=== PATIENT | female | born 1970 | race Caucasian/White ===

== ENCOUNTER 2023-10-03 06:13 | Observation (INO) ==
--- NOTE | 2023-09-13 11:24 | PAT Medication Instructions ---
Medication Instructions Date of Service September 13, 2023 Home Medications albuterol sulfate 90 mcg/actuation aerosol inhaler (Ventolin HFA) 2 puff inhalation Q6H PRN ascorbic acid (vitamin C) 1,000 mg capsule 1 g PO QAM atorvastatin 20 mg tablet 20 mg PO QPM buspirone 5 mg tablet 5 mg PO BID cholecalciferol (vitamin D3) 125 mcg (5,000 unit) capsule 125 mcg PO QAM cranberry-B.nhlhrapps-V-Th phos 480 mg-20 mg-100 million cell tablet (Cranberry- Probiotic) 1 tab PO QAM denosumab 60 mg/mL subcutaneous syringe (Prolia) 60 mg subcut Q6M diclofenac sodium 1 % topical gel (Arthritis Pain (diclofenac)) 2 g topical QID duloxetine 60 mg capsule,delayed release (Cymbalta) 60 mg PO BID fexofenadine 180 mg tablet 180 mg PO HS hydrochlorothiazide 12.5 mg tablet 12.5 mg PO QAM PRN lansoprazole 15 mg capsule,delayed release (Prevacid 24Hr) 15 mg PO QPM linaclotide 290 mcg capsule (Linzess) 290 mcg PO QAM semaglutide 2 mg/dose (8 mg/3 mL) subcutaneous pen injector (Ozempic) 2 mg subcut WK STOP 7 days before surgery semaglutide 2 mg/dose (8 mg/3 mL) subcutaneous pen injector (Ozempic) 2 mg subcut WK ASK your prescriber and surgeon denosumab 60 mg/mL subcutaneous syringe (Prolia) 60 mg subcut Q6M STOP taking 24 hours before surgery diclofenac sodium 1 % topical gel (Arthritis Pain (diclofenac)) 2 g topical QID DO NOT take the morning of surgery ascorbic acid (vitamin C) 1,000 mg capsule 1 g PO QAM cholecalciferol (vitamin D3) 125 mcg (5,000 unit) capsule 125 mcg PO QAM cranberry-B.dimyszoox-N-Xc phos 480 mg-20 mg-100 million cell tablet (Cranberry- Probiotic) 1 tab PO QAM hydrochlorothiazide 12.5 mg tablet 12.5 mg PO QAM PRN linaclotide 290 mcg capsule (Linzess) 290 mcg PO QAM Take morning of surgery With a small sip of water, OTHERWISE NOTHING TO EAT OR DRINK AFTER MIDNIGHT: albuterol sulfate 90 mcg/actuation aerosol inhaler (Ventolin HFA) 2 puff inhalation Q6H PRN(use if needed; please bring with you to hospital day of surgery if possible) buspirone 5 mg tablet 5 mg PO BID duloxetine 60 mg capsule,delayed release (Cymbalta) 60 mg PO BID Take evening before surgery albuterol sulfate 90 mcg/actuation aerosol inhaler (Ventolin HFA) 2 puff inhalation Q6H PRN(if needed) atorvastatin 20 mg tablet 20 mg PO QPM buspirone 5 mg tablet 5 mg PO BID duloxetine 60 mg capsule,delayed release (Cymbalta) 60 mg PO BID fexofenadine 180 mg tablet 180 mg PO HS lansoprazole 15 mg capsule,delayed release (Prevacid 24Hr) 15 mg PO QPM Other Notes If you have any questions please call us at [phone] or [phone] or [phone] or [phone]
--- NOTE | 2023-09-22 13:54 | Anesthesiology Consultation ---
Date of Service September 22, 2023 Assessment & Plan (1) Encounter for pre-operative examination: Chart Review Chart Review: Acceptable Risk for Surgery (pending PCP clearance ) and Patient seen in Pre Admission Testing - Awaiting PCP clearance (09/23/23) (Adeline Henson with Dr. Tejeda office) (please send optimization form with preop testing to PCP re: recent syncope and current liver work up) - Check BSG AM DOS Patient wears Freestyle Michael glucose monitoring device to upper extremity - Ozempic instructions: Patient takes on (Mondays). Patient informed at PAT visit to stop 7 days prior to surgery- voiced understanding. Patient advised to check with prescriber while holding Ozempic. Patient's last dose of Ozempic will be 09/26/23- will be off Ozempic x 7 days by DOS on 10/03/23. Per PAT appt on 09/22/23, no recent illness/disease exposures, illness related symptoms, or recent illness/disease positive tests. Will leave to surgeon's discretion if preop Covid testing needed Teaching & Discussion Pre-Anesthesia Teaching/Discussion Notes: Instructed NPO after midnight before surgery,except medications with 15 cc of water. Medication instructions provided according to the PAT guidelines. History Surgery Operation Date: 10/03/23 13:25 Proposed Procedures p C5-C6 Anterior Cervical Discectomy and Fusion, Spinal Cord Monitoring - Carlitos Luong DO Height/Weight Height: 5 ft 1 in Weight: 63.9 kg Allergies Allergy/AdvReac Type Severity Reaction Status Date / Time codeine Allergy Severe itching. Verified 09/13/23 07:37 erythromycin base Allergy Intermediate rash/hives Verified 09/13/23 07:37 gabapentin Allergy Intermediate generalized Verified 09/13/23 07:37 edema adhesive AdvReac Intermediate localized Verified 09/13/23 07:38 red patches, itching Medications Home Medications Medication Instructions Recorded Confirmed Last Taken albuterol sulfate 90 mcg/actuation 2 puff inhalation Q6H PRN sob 06/23/23 09/13/23 Unknown aerosol inhaler (Ventolin HFA) ascorbic acid (vitamin C) 1,000 mg 1 g PO QAM 06/23/23 09/13/23 Unknown capsule atorvastatin 20 mg tablet 20 mg PO QPM 06/23/23 09/13/23 Unknown buspirone 5 mg tablet 5 mg PO BID 06/23/23 09/13/23 Unknown cholecalciferol (vitamin D3) 125 125 mcg PO QAM 06/23/23 09/13/23 Unknown mcg (5,000 unit) capsule cranberry-B.siahzrhmp-L-Pw phos 1 tab PO QAM 06/23/23 09/13/23 Unknown 480 mg-20 mg-100 million cell tablet (Cranberry-Probiotic) denosumab 60 mg/mL subcutaneous 60 mg subcut Q6M 06/23/23 09/13/23 Unknown syringe (Prolia) diclofenac sodium 1 % topical gel 2 g topical QID 06/23/23 09/13/23 Unknown (Arthritis Pain (diclofenac)) duloxetine 60 mg capsule,delayed 60 mg PO BID 06/23/23 09/13/23 Unknown release (Cymbalta) fexofenadine 180 mg tablet 180 mg PO HS 06/23/23 09/13/23 Unknown hydrochlorothiazide 12.5 mg tablet 12.5 mg PO QAM PRN Edema 06/23/23 09/13/23 Unknown lansoprazole 15 mg capsule,delayed 15 mg PO QPM 06/23/23 09/13/23 Unknown release (Prevacid 24Hr) linaclotide 290 mcg capsule 290 mcg PO QAM 09/13/23 09/13/23 Unknown (Linzess) semaglutide 2 mg/dose (8 mg/3 mL) 2 mg subcut WK 09/13/23 09/13/23 09/12/23 subcutaneous pen injector (Ozempic) Past Medical History Medical History Hard of hearing Wears hearing aids bilaterally Diabetes mellitus NIDDM Glucose stable - on Ozempic Hx of syncope July (mid-end) 2022 - treated at [facility]. pt reports her ears werer popping and became dizzy and she had passed out at home "for a minute or so" and found herself on the bathroom floor. did not hit her head - treated at [facility] Emergency Room. no recent episodes. PCP had patient do the holter monitor for 09/09 - 09/11/23, awaiting those results. History of COVID-2019 - moderate flu symptoms. no current problems Chronic back pain Degenerative disc disease Lyme disease No current issues Deep vein thrombosis 1988 s/p . treated with blood thinners at the time for 1 year. no current issues. Sleep apnea hx - resolved with gastric bypass and weightloss. no longer uses machine. Post traumatic stress disorder Hx of motion sickness Nausea and vomiting after administration of anesthetic agent uses scopalamine patch in the past with success Myalgia reason for duloxetine currently Osteoporosis Chronic sinusitis No acute issues Stress headaches Pneumonia "walking pneumonia" June 2023. treated with abx/steroids at the time. no current problems. Asthma well controlled. rarely uses rescue inhaler - last used June 2023 Insomnia GERD (gastroesophageal reflux disease) Well controlled and stable with meds Anxiety Depression Mesenteric lymphadenitis Last issue 2011 - no recent issues Elevated liver enzymes awaiting an MRCP for further evaluation with [facility] Castelan (10/12/23) (following with GI) Exercise / Class Metabolic Activity II 4-5 Yardwork/Stairs/Walk up hill (one flight of stairs - no chest pain or SOB ) Past Family History Family History Other No family history of adverse response to anesthesia Past Surgical History Surgical History Hx of myringotomy bilateral tubes (last placed in 2019) S/P epidural steroid injection lumbar History of colonoscopy History of esophagogastroduodenoscopy (EGD) History of Humaira-en-Y gastric bypass (~2010) 2010 at [facility] Hx of umbilical hernia repair History of endoscopic sinus surgery removal of benign polyps History of laryngoscopy to remove benign polyps from the vocal cords S/P CHARLIE-BSO History of carpal tunnel surgery bilateral Hx of cholecystectomy History of x2 Past Anesthesia History No Hx of Anesthesia Complications (with exception to PONV ) and No Family Hx of Anesthesia Complications History of PONV History of PONV (improved with scop patch (ordered for AM of surgery)) and Hx of Motion Sickness Social History Smoking Status: Never smoker Do You Dip or Chew Tobacco: No Hx Alcohol Use: No Hx Substance Use: No substance use type: does not use Review of Systems Patient denies chest pain, shortness of breath, dyspnea on exertion, cough, wheezing, palpitations. No hx of seizures, stroke, CT. No hx of blood transfusions Physical Exam Vital Signs VITALS BP 108/72 P 63 TEMP 98.6 SP02 96% RESP 16 Constitutional no acute distress ENMT Mouth: + small oral opening; no TMJ clicking Thyromental Distance: > or= 3.5 Finger Breadths (3.5) Mallampati Class: I Full upper denture Missing bottom molars and side teeth Neck + limited neck extension (mild) Respiratory normal respiratory effort; no respiratory distress Auscultation: lungs clear to auscultation bilaterally; breath sounds present and no wheezes Cardiovascular Rate/Rhythm: regular rate and regular rhythm Heart Sounds: no murmur Vessels: no carotid bruit Musculoskeletal Spine: + pain with cervical ROM Extremities: extremities normal to inspection Psychiatric Orientation: alert Lab Results Anesthesia Preop Results Results Anesthesia Widget: WBC 5.48 K/ul (4.8-10.8) 09/22/23 Hgb 14.2 g/dl (12.0-16.0) 09/22/23 Hct 44.5 % (37.0-47.0) 09/22/23 Plt 296 K/uL (130-400) 09/22/23 Na 140 mmol/L (136-145) 09/22/23 K 3.6 mmol/L (3.5-5.1) 09/22/23 Cl 104 mmol/L (98-107) 09/22/23 CO2 31 mmol/L (21-32) 09/22/23 BUN 14 mg/dl (6-23) 09/22/23 Creat 0.80 mg/dl (0.6-1.2) 09/22/23 Glucose Level 112 mg/dl (70-99(Fasting)) H 09/22/23 PT 10.8 Seconds (9.0-12.0) 09/22/23 PTT 28 Seconds (21-31) 09/22/23 INR 1.0 (0.9-1.1) 09/22/23 HA1c 6.0 % (4.5-5.6) H 09/22/23 Urine Color Dark Yellow 09/22/23 Urine Appearance Turbid (Clear) A 09/22/23 Urine pH 5.5 (4.5-7.5) 09/22/23 Urine Specific [place] 1.027 (1.000-1.030) 09/22/23 Urine Protein Negative (Negative) 09/22/23 Urine Glucose (UA) Negative (Negative) 09/22/23 Urine Ketones Trace (Negative) H 09/22/23 Urine Blood Negative (Negative) 09/22/23 Urine Nitrite Negative (Negative) 09/22/23 Urine Bilirubin Negative (Negative) 09/22/23 Urine Urobilinogen Negative (Negative) 09/22/23 Urine Leukocyte Esterase Trace (Negative) H 09/22/23 Urine WBC (Auto) 5-10 /hpf (0-5) H 09/22/23 Urine RBC (Auto) 0-4 /hpf (0-4) 09/22/23 Urine Hyaline Casts (Auto) 10-30 /lpf (0-5) H 09/22/23 Urine Epithelial Cells (Auto) 10-20 /lpf (0-5) H 09/22/23 Urine Bacteria (Auto) Negative (Negative) 09/22/23 Blood Type A Positive 09/22/23 Antibody Screen NEGATIVE 09/22/23 Testing Laboratory Results 09/22/23= AST: 34 ALT: 56 ALK PHOS: 91 Electrocardiogram Date: 09/22/23 Findings: + NSR @ (61bpm ) Normal EKG per cardio Chest X-Ray Date: 08/15/23 Findings: + NAD Mild atherosclerotic changes of aorta. No focal consolidation, pleural effusion or pneumothorax. Other Testing CT of head/brain 08/15/2023 = no acute intracranial abnormality identified. Stable extra-axial likely calcified meningioma along the left frontal convexity, unchanged. Measures up to 5 mm. Postsurgical changes of partially visualized sinuses, with mucous retention cyst or polyp in the left sphenoid sinus.
[~2023-10-03 06:13] MED LIST: ACETAMINOPHEN 500 MG TAB PO SCH; CeleBREX 200 MG CAP PO SCH; LR 15ML/HR IV SCH; LR 60ML/HR IV SCH; ceFAZolin 2000MG 2,000 MG/15 ML SYR IV SCH
[2023-10-03] MEDS ORDERED: ceFAZolin 330 MG/ML 1 GM VIAL ONE (07:03)
[2023-10-03] MEDS ORDERED: NEOSTIGMINE METHYLSULFATE 1 MG/ML 10ML VIAL ONE (07:10)
[2023-10-03] MEDS ORDERED: SCOPOLAMINE 1 MG TDSY TD ONE (07:10)
[2023-10-03] MEDS ORDERED: ROCURONIUM BROMIDE 10 MG/ML 5 ML VIAL IV ONE (07:10)
[2023-10-03] MEDS ORDERED: DEXAMETHASONE SOD INJ 4 MG/ML VIAL ONE (07:10)
[2023-10-03] MEDS ORDERED: METOCLOPRAMIDE HCL INJ 5 MG/ML 2 ML VIAL ONE (07:10)
[2023-10-03] MEDS ORDERED: fentaNYL citrate PF 100 MCG/2 ML VIAL ONE ×2 (07:10→08:30)
[2023-10-03] MEDS ORDERED: LIDOCAINE 2% 2 ML VIAL/AMP(20MG/ML) INFIL ONE (07:10)
[2023-10-03] MEDS ORDERED: ONDANSETRON INJ 2 MG/ML 2 ML VIAL ONE (07:10)
[2023-10-03] MEDS ORDERED: MIDAZOLAM HCL 1 MG/ML 2ML VIAL ONE (07:10)
[2023-10-03] MEDS ORDERED: PROPOFOL IV EMULSION 10 MG/ML 20 ML VIAL IV ONE (07:10)
[2023-10-03] MEDS ORDERED: GLYCOPYRROLATE 0.2 MG/ML VIAL ONE (07:10)
[2023-10-03] MEDS ORDERED: ePHEDrine sulfate 50 MG/ML AMP IV PRN (07:13)
[2023-10-03] MEDS ORDERED: ATROPINE SULFATE 0.1 MG/ML 10ML SYR IV PRN (07:13)
[2023-10-03] MEDS ORDERED: ONDANSETRON INJ 2 MG/ML 2 ML VIAL IV PRN ×2 (07:13→10:36)
[2023-10-03] MEDS ORDERED: SCOPOLAMINE 1 MG TDSY TD SCH (07:15)
[2023-10-03] MEDS ORDERED: FAMOTIDINE/PF 20 MG/2 ML VIAL IV ONE (07:18)
--- NOTE | 2023-10-03 07:46 | History & Physical Bridge Note ---
Date of Service October 03, 2023 History & Physical Bridge Note I have examined the patient, reviewed the History & Physical and in the interval since the performance of the History & Physical I have noted the following changes of clinical significance: no changes noted
--- NOTE | 2023-10-03 07:48 | History & Physical Report ---
Date of Service October 03, 2023 Assessment & Plan (1) Cervical stenosis of spinal canal: Plan: Anterior cervical discectomy and fusion C5-C6 History of Present Illness Chief Complaint: Neck and arm pain Primary Care Provider: VALARIE Reyes This is a 52-year-old female who presents for chronic persistent neck and arm pain after failing course of nonoperative care is here for surgical invention. Allergies Allergy/AdvReac Type Severity Reaction Status Date / Time codeine Allergy Severe itching. Verified 10/03/23 06:37 erythromycin base Allergy Intermediate rash/hives Verified 10/03/23 06:37 gabapentin Allergy Intermediate generalized Verified 10/03/23 06:37 edema adhesive AdvReac Intermediate localized Verified 10/03/23 06:37 red patches, itching Home Medications Medication Instructions Recorded Confirmed Type albuterol sulfate 90 mcg/actuation 2 puff inhalation Q6H PRN sob 06/23/23 10/03/23 History aerosol inhaler (Ventolin HFA) ascorbic acid (vitamin C) 1,000 mg 1 g PO QAM 06/23/23 10/03/23 History capsule atorvastatin 20 mg tablet 20 mg PO QPM 06/23/23 10/03/23 History buspirone 5 mg tablet 5 mg PO BID 06/23/23 10/03/23 History cholecalciferol (vitamin D3) 125 125 mcg PO QAM 06/23/23 10/03/23 History mcg (5,000 unit) capsule cranberry-B.mbfahocka-G-Zo phos 1 tab PO QAM 06/23/23 10/03/23 History 480 mg-20 mg-100 million cell tablet (Cranberry-Probiotic) denosumab 60 mg/mL subcutaneous 60 mg subcut Q6M 06/23/23 10/03/23 History syringe (Prolia) diclofenac sodium 1 % topical gel 2 g topical QID 06/23/23 10/03/23 History (Arthritis Pain (diclofenac)) duloxetine 60 mg capsule,delayed 60 mg PO BID 06/23/23 10/03/23 History release (Cymbalta) fexofenadine 180 mg tablet 180 mg PO HS 06/23/23 10/03/23 History hydrochlorothiazide 12.5 mg tablet 12.5 mg PO QAM PRN Edema 06/23/23 10/03/23 History lansoprazole 15 mg capsule,delayed 15 mg PO QPM 06/23/23 10/03/23 History release (Prevacid 24Hr) linaclotide 290 mcg capsule 290 mcg PO QAM 09/13/23 10/03/23 History (Linzess) semaglutide 2 mg/dose (8 mg/3 mL) 2 mg subcut WK 09/13/23 10/03/23 History subcutaneous pen injector (Ozempic) Past Med/Surg History Medical History Hard of hearing Wears hearing aids bilaterally Diabetes mellitus NIDDM Glucose stable - on Ozempic Hx of syncope July (mid-end) 2022 - treated at [facility]. pt reports her ears werer popping and became dizzy and she had passed out at home "for a minute or so" and found herself on the bathroom floor. did not hit her head - treated at [facility] Emergency Room. no recent episodes. PCP had patient do the holter monitor for 09/09 - 09/11/23, awaiting those results. History of COVID-2019 - moderate flu symptoms. no current problems Chronic back pain Degenerative disc disease Lyme disease No current issues Deep vein thrombosis 1988 s/p . treated with blood thinners at the time for 1 year. no current issues. Sleep apnea hx - resolved with gastric bypass and weightloss. no longer uses machine. Post traumatic stress disorder Hx of motion sickness Nausea and vomiting after administration of anesthetic agent uses scopalamine patch in the past with success Myalgia reason for duloxetine currently Osteoporosis Chronic sinusitis No acute issues Stress headaches Pneumonia "walking pneumonia" June 2023. treated with abx/steroids at the time. no current problems. Asthma well controlled. rarely uses rescue inhaler - last used June 2023 Insomnia GERD (gastroesophageal reflux disease) Well controlled and stable with meds Anxiety Depression Mesenteric lymphadenitis Last issue 2011 - no recent issues Elevated liver enzymes awaiting an MRCP for further evaluation with [facility] Annelise (10/12/23) (following with GI) Surgical History Hx of myringotomy bilateral tubes (last placed in 2019) S/P epidural steroid injection lumbar History of colonoscopy History of esophagogastroduodenoscopy (EGD) History of Humaira-en-Y gastric bypass (~2010) 2010 at [facility] Hx of umbilical hernia repair History of endoscopic sinus surgery removal of benign polyps History of laryngoscopy to remove benign polyps from the vocal cords S/P CHARLIE-BSO History of carpal tunnel surgery bilateral Hx of cholecystectomy History of x2 Family History Other No family history of adverse response to anesthesia Social History Smoking Status: Never smoker Second Hand Exposure: No; Do You Dip or Chew Tobacco: No; Tobacco Cessation Education Requested by Patient: No Hx Alcohol Use: No Hx Substance Use: No Preferred Language: Omani Communication Ability: Effective Stripper Preliminary Required: No Beliefs That Will Affect Care: None Current Living Situation: Spouse Other Information That Helps Us Care for You: No Feels Safe at Home: Yes Safety Concerns: Feels Safe At This Time Assistive Devices: Denture - Upper, Denture - Lower and Hearing Aid - Bilateral Physical Exam Physical Exam: Patient is alert and oriented Heart regular rhythm Lungs clear Results & Data Results & Data Vital Signs (Past 12 Hours) Vital Signs Temp Pulse Resp BP Pulse Ox O2 Del Method 10/03/23 06:55 36.7 C 63 20 108/71 98 Room Air
[2023-10-03] MEDS ORDERED: PHENYLEPHRINE 100MCG/ML 10ML SYR IV ONE (08:47)
[2023-10-03] MEDS ORDERED: ePHEDrine sulfate 50 MG/5 ML SYR ONE (08:47)
[2023-10-03] MEDS ORDERED: FLOSEAL HEMOSTATIC MATRIX 10ML TOP ONE (08:55)
--- NOTE | 2023-10-03 09:02 | Operative Report ---
Post Operative Report Pre & Post Diagnosis Operation Date: 10/03/23 07:45 Pre-Op Diagnosis: Cervical spinal stenosis with myeloradiculopathy Post-Op Diagnosis: Same I identified the patient and participated in the time-out.: Yes Procedure Operation Date: 10/03/23 07:45 Actual Procedures #1 anterior cervical discectomy with bilateral foraminotomies C5-C6. #2 anterior cervical arthrodesis C5-C6. #3 placement spiral 7 mm cage with I factor C5-C6. #4 application of K2 M plate and screws across C5-C6. Surgeon Carlitos Luong, Skiving Machine Operator May Wild Estimated Blood Loss 10 Findings Consistent with Post-Op Diagnosis Specimens None Indications This is a 52-year-old female who presents above-mentioned diagnosis after failin g course of nonoperative care is here for surgical invention. Description of Procedure Patient was met with identified informed consent obtained. Patient was then taken to the operative suite underwent patient placed in spine position ingestible the Castro lozada. All bony prominences well-padded eyes inspected to ensure no external precipice spinal. This point the anterior cervical spine was prepped and draped in a sterile fashion. The assistance of fluoroscopy identified the C5-C6 disc base and a transverse incision was placed along the right anterior aspect of the cervical spine overlying this region. Blunt dissection with assistance of bipolar electrocautery was performed down to exposing the anterior cervical spine at C5-C6. Self-retaining tractors placed. Then performed a complete discectomy of C5-C6 out to the uncovertebral joints bilaterally. [place] distracting pins utilized to assist in visualization. Removed all posterior annular fibers longitudinal ligament bilateral foraminotomies were performed in a submillimeter Spira cage filled with I factor X position. Distracting apparatus was removed and a K2 M plate screws applied with the assistance of fluoroscopy. The incision was then copiously irrigated explored to ensure no damage to distract structures remaining bleeding. 10 round SHIV drain inserted. The incision was then closed with 2 Vicryl in the fascia and 4 Monocryl for fascial closure. Steri-Strips sterile dressing placed. Patient was then taken to PACU in stable condition. Please note spinal cord monitoring was utilized at the procedure no changes noted. Lastly May Wild was present at the entire surgery and while the patient positioning complex course of the surgery and final skin closure. I attest to the content of the Intraoperative Record and any orders documented therein. Any exceptions are noted below.
[2023-10-03] MEDS: fentaNYL citrate PF 100 MCG/2 ML VIAL IV PRN ×2 (10:05→10:10)
--- NOTE | 2023-10-03 10:17 | Anesthesiology Progress Note ---
Date of Service October 03, 2023 Anesthesia Post Procedure Vital Signs Vital Signs: Temp Pulse Pulse Resp BP Pulse Ox O2 Del Method 10/03/23 10:10 78 16 117/62 99 Nasal Cannula 10/03/23 10:00 80 20 121/64 100 Nasal Cannula 10/03/23 09:50 80 22 122/63 100 Nasal Cannula 10/03/23 09:40 82 16 117/60 100 Nasal Cannula 10/03/23 09:30 78 22 119/59 L 100 Nasal Cannula 10/03/23 09:20 97.5 F L 84 20 112/66 100 Room Air 10/03/23 06:55 98.1 F 63 20 108/71 98 Room Air O2 Flow Rate 10/03/23 10:10 2 10/03/23 10:00 2 10/03/23 09:50 2 10/03/23 09:40 2 10/03/23 09:30 2 10/03/23 09:20 10/03/23 06:55 Pain Intensity Anterior Neck: Pain Intensity: 4 Transfer of Care Handoff Completed per policy Notes Mental Status: alert / awake / arousable and participated in evaluation Patient Amnestic to Procedure: Yes Nausea / Vomiting: adequately controlled Pain: adequately controlled Airway Patency, RR, SpO2: stable & adequate BP & HR: stable & adequate Hydration State: stable & adequate Anesthetic Complications: no major complications apparent and Pt Satisfied with anesthetic care
[2023-10-03] MEDS ORDERED: ALUMINUM/MAGNESIUM SUSP 30 ML UDC PO PRN (10:36)
[2023-10-03] MEDS ORDERED: METOCLOPRAMIDE HCL INJ 5 MG/ML 2 ML VIAL IV PRN (10:36)
[2023-10-03] MEDS ORDERED: SOD PHOSPHATE/SOD BIPHOSPHATE ENEMA 132 ML BTL PR PRN (10:36)
[2023-10-03] MEDS ORDERED: diphenhydrAMINE Capsule 25 MG CAP PO PRN (10:36)
[2023-10-03] MEDS ORDERED: HYDROmorphone INJ 0.5 MG/0.5 ML SYR IV PRN (10:36)
[2023-10-03] MEDS ORDERED: dexAMETHasone 8 MG in SYRINGE 0 ML IV PRN (10:36)
[2023-10-03] MEDS ORDERED: bisacodyL 10 MG SUPP PR PRN (10:36)
[2023-10-03] MEDS ORDERED: NALOXONE HCL 0.4 MG/1 ML VIAL/CARP IV PRN (10:36)
[2023-10-03] MEDS ORDERED: ONDANSETRON 4 MG OD TAB PO PRN (10:36)
[2023-10-03] MEDS ORDERED: ALBUTEROL HFA 8 GM INHALER INH PRN (10:36)
[2023-10-03] MEDS ORDERED: hydrOXYzine HCl 25 MG TAB PO PRN (10:36)
[2023-10-03] MEDS ORDERED: LORazepam 0.5 MG in SYRINGE 0.25 ML IV PRN (10:36)
[2023-10-03] MEDS ORDERED: ACETAMINOPHEN 500 MG TAB PO PRN (10:36)
[2023-10-03] MEDS ORDERED: HYDROmorphone INJ 1 MG/ML SYRINGE IV PRN (10:36)
[2023-10-03] MEDS ORDERED: DO NOT ADMINISTER FLU VACCINE PRN (10:36)
[2023-10-03] MEDS ORDERED: DO NOT ADMINISTER PNEUMOCOCCAL VACCINE PRN (10:36)
[2023-10-03] MEDS ORDERED: PHARMACY GLYCEMIC MGMT CONSULT PRN (10:36)
[2023-10-03] MEDS ORDERED: FAMOTIDINE 20 MG TAB PO PRN (10:36)
[2023-10-03] MEDS ORDERED: PROMETHAZINE HCL 12.5 MG in SODIUM CHLORIDE 0.9% 50 ML IV PRN (10:36)
[2023-10-03] MEDS ORDERED: ACETAMINOPHEN 1,000 MG/100 ML VIAL IV PRN (10:36)
[2023-10-03] MEDS ORDERED: hydroCHLOROthiazide 25 MG TAB PO PRN (10:36)
[2023-10-03] MEDS ORDERED: RACEPINEPHRINE 2.25% NEBU SOLN 0.5 ML VIAL INH PRN (10:36)
[2023-10-03] MEDS ORDERED: MAGNESIUM HYDROXIDE SUSP 30 ML UDC PO PRN (10:36)
[2023-10-03] MEDS: CHECK SCOPOLAMINE PATCH PLACEMENT SCH ×3 (10:46→23:43)
--- NOTE | 2023-10-03 10:51 | Fluoroscopy Report ---
FL cervical 2-3V CLINICAL HISTORY: ACDF C5-C6 TECHNIQUE: 2 views were obtained with the C-arm in the OR with the above procedure. Total fluoroscopy time was 5.1 seconds. Radiation dose was 0.35 mGy. Comparison: None available at the time of this dictation. FINDINGS/IMPRESSION: Intraoperative images were obtained of ACDF spanning C5-C6. Please correlate with intraoperative fluoroscopy and operative report. ACT 112: Negative or not required by law. Electronically signed by: Larry Chappell M.D. 10/03/2023 10:49 AM
[2023-10-03] MEDS: SODIUM CHLORIDE 0.9% 1,000 ML IV SCH ×2 (11:14→19:58)
[2023-10-03] MEDS ORDERED: LANTUS PER UNIT CHARGE SC ONE ×2 (11:30→21:00)
[2023-10-03] MEDS: INSULIN ASPART PER UNIT CHARGE SC SCH ×3 (12:30→21:35)
[2023-10-03] MEDS: traMADol HCL 50 MG TABLET PO PRN ×2 (13:35→17:32)
--- NOTE | 2023-10-03 13:38 | Pharmacy Report ---
Pharmacy Glycemic Short Note 2 - Date of Service October 03, 2023 - Glycemic Short BSG Results (Last 24 hours): 10/03/23 10/03/23 10/03/23 06:46 09:21 11:26 POC Glucose 107 H 115 H 136 H OUTPATIENT ANTIDIABETIC REGIMEN: * Ozempic * A1c 6.0% 09/22/24 ASSESSMENT: * Patient is admitted post discectomy/fusion, received 4 mg IV dexamethasone in the OR. * A1c indicates good control outpatient, BSG is trending upward- 136 mg/dL- will start insulin with weight based stress of 2 dosing * Additional lantus dose this evening if BSGs elevated * Dex 6 mg daily scheduled to begin tomorrow PLAN FOR INPATIENT GLYCEMIC CONTROL: * Hold outpatient oral diabetes medications * Basal insulin * Lantus 10 units SQ x1, additional 10 units this evening if BSGs elevated * Bolus insulin * NovoLog per scale ACHS or Q6hrs while NPO * Goal Range: Low 110 mg/dL - High 140 mg/dL * Correction Factor: 35 mg/dL/unit * Nutritional / Prandial insulin per carb ratio of 1 unit per 12 grams CHO consumed
[2023-10-03] MEDS ORDERED: Nursing to Pharmacy Communication SCH (13:45)
[2023-10-03] MEDS: ceFAZolin 1000MG 1,000 MG/7.5 ML SYR IV SCH ×2 (15:45→23:27)
[2023-10-03] MEDS: DULoxetine HCL 60 MG CAP PO SCH (19:55)
[2023-10-03] MEDS: busPIRone 5 MG TAB PO SCH (19:55)
[2023-10-03] MEDS ORDERED: ATORVASTATIN 20 MG TAB PO SCH (21:00)
[2023-10-03] MEDS ORDERED: PANTOprazole 40 MG TAB PO SCH (21:00)
[2023-10-03] MEDS ORDERED: DOCUSATE SODIUM/SENNA 50/8.6MG TAB PO SCH (21:00)
[2023-10-03] MEDS ORDERED: FEXOFENADINE HCL 180 MG TAB PO SCH (21:00)
[2023-10-03] MEDS: oxyCODONE HCL IR 5 MG TAB (IMMEDIATE RELEASE) PO PRN (23:30)
[2023-10-04] MEDS: LORazepam 0.5 MG TAB PO PRN ×2 (02:42→14:10)
[2023-10-04] MEDS ORDERED: INSULIN ASPART PER UNIT CHARGE SC SCH (03:00)
[2023-10-04] MEDS: SODIUM CHLORIDE 0.9% 1,000 ML IV SCH (05:56)
[2023-10-04] MEDS: oxyCODONE HCL IR 5 MG TAB (IMMEDIATE RELEASE) PO PRN ×2 (06:00→11:52)
[2023-10-04] MEDS: POLYETHYLENE (MIRALAX) 17 GM PACK PO SCH ×2 (06:00→11:49)
[2023-10-04] MEDS: INSULIN ASPART PER UNIT CHARGE SC SCH ×2 (08:25→12:25)
[2023-10-04] MEDS: DULoxetine HCL 60 MG CAP PO SCH (08:26)
[2023-10-04] MEDS: CHECK SCOPOLAMINE PATCH PLACEMENT SCH (08:26)
[2023-10-04] MEDS: busPIRone 5 MG TAB PO SCH (08:26)
--- NOTE | 2023-10-04 08:39 | Discharge Summary ---
Date of Service October 04, 2023 Admission HPI Per Admitting Provider This is a 52-year-old female who presents for chronic persistent neck and arm pain after failing course of nonoperative care is here for surgical invention. Principal Diagnosis Cervical spinal stenosis with myeloradiculopathy Discharge Data Allergies Allergy/AdvReac Type Severity Reaction Status Date / Time codeine Allergy Severe itching. Verified 10/03/23 06:37 erythromycin base Allergy Intermediate rash/hives Verified 10/03/23 06:37 gabapentin Allergy Intermediate generalized Verified 10/03/23 06:37 edema adhesive AdvReac Intermediate localized Verified 10/03/23 06:37 red patches, itching Procedures Performed Operation Date: 10/03/23 07:45 Actual Procedures p C5-C6 Anterior Cervical Discectomy and Fusion, Spinal Cord Monitoring(Not Applicable) - Carlitos Luong DO Ordered Studies 10/03/23 07:45 FL cervical 2-3V Routine Hospital Course (1) Cervical stenosis of spinal canal: Patient underwent anterior cervical discectomy fusion tolerated this well was taken to orthopedic for postoperative. Postoperatively she swallowing well. No hoarseness. Arm symptoms markedly improved. SHIV drain decreasing appropriate. Simply discharged home. Discharge orders instructions on the chart for further review. Total Time Total Time Spent Total Time Spent (In Minutes): 20 minutes Discharge Plan Discharge Items Patient Disposition: Home - Self-Care Reason For Visit: Cervical Disc Disease, Myelomalacia Discharge Diagnosis: Cervical spinal stenosis with myeloradiculopathy Activity: As commented below Non-emergency contact: Primary Care Provider Call non-emergency contact if: you have any medication questions Follow-up/Referrals: Estefany Henson CRNP [Primary Care Provider] - Diet: Regular Addtl Attending Provider Instructions: ACTIVITY RECOMMENDATIONS: SELF CARE INSTRUCTIONS AFTER CERVICAL FUSIONS 1. No smoking. Smoking drastically decreases the chance of a solid fusion. 2. No bending, lifting more than 5 pounds, or twisting (roll like a log when turning in bed). 3. You may shower 3 days after surgery. Thoroughly dry wound. Do not soak in the tub. 4. Cervical collar: Must be worn at all times including sleeping. You may remove the brace only to bath, eat and if you are sitting in a recliner. 5. Please walk as much as you can for exercise. Gradually increase the distance that you walk as your endurance increases. SPECIAL CARE INSTRUCTIONS: VERY IMPORTANT TO READ AND REVIEW A. Do not take any anti-inflammatory medications (i.e. Indocin, Advil, Aspirin, Naprosyn, Aleve, Motrin, etc.) as these may inhibit the chance of a solid fusion. Tylenol is okay to take. B. Your surgical incision has been closed with a cosmetic suture under the skin that will dissolve in about 6 weeks. In 14 days, you can use a pair of clean scissors and cut the suture that is left outside of the skin at the ends of your incision. C. Complications are uncommon, but please contact us if you have any signs or symptoms of: 1. wound infection (fever higher than 102.5 degrees F, redness, separation of wound, drainage, or increasing pain from the incision) 2. blood clots in legs (pain, swelling, redness and warmth in legs) 3. urinary tract infection (fever higher than 102.5 degrees, burning upon urination or increased frequency of urination) 4. nerve problems (inability to walk on your toes or heels, numbness, loss of bowel or bladder control) 5. any other symptoms that concern you. D. Please call the office at if you have any concerns or questions about your operation or recovery. MANAGING PAIN AFTER SPINAL SURGERY 1. Narcotic medication is intended for short-term use and will be provided for surgical pain. Surgical pain usually lasts for a period of 4-6 weeks. Narcotic medication includes Percocet, Vicodin, Darvocet, Tylenol #3 or Lortab. 2. Longer-term pain is more appropriately treated with non-narcotic medication such as Tylenol ES. 3. Muscle spasm is not appropriately treated with narcotics. Muscle relaxers s uch as Soma, Flexeril or Skelaxin can be used along with Tylenol ES. 4. Remember that we all live with some "aches and pains". This is not unusual or uncommon after an injury or as we get older. 5. We will provide appropriate medication within the normal guidelines of their prescribed use. We will also be very cautious and aware of potential abuse and extended duration of patients' medication needs. 6. Please allow 2-3 days to process refills. Prescriptions will not be mailed but must be picked up at the office. FOLLOW UP VISIT: Keep your scheduled follow-up appointment. Any questions, please call the office at . Pending Studies at Discharge: No Stand-Alone Forms: [facility], Smoking Cessation Medications and DC Order Prescriptions: New tramadol 50 mg tablet 50 mg PO Q6H PRN (Reason: pain, moderate) Qty: 30 0RF oxycodone 5 mg tablet 5 mg PO Q6H PRN (Reason: pain) Qty: 30 0RF Continued albuterol sulfate [Ventolin HFA] 90 mcg/actuation HFA aerosol inhaler 2 puff inhalation Q6H PRN (Reason: sob) Cranberry-Probiotic 480 mg-20 mg- 100million cell tablet 1 tab PO QAM ascorbic acid (vitamin C) 1,000 mg capsule 1 g PO QAM cholecalciferol (vitamin D3) 125 mcg (5,000 unit) capsule 125 mcg PO QAM duloxetine [Cymbalta] 60 mg capsule,delayed release(DR/EC) 60 mg PO BID buspirone 5 mg tablet 5 mg PO BID diclofenac sodium [Arthritis Pain (diclofenac)] 1 % gel 2 g topical QID Rx Instructions: apply to single elbow, wrist or hand; for hand includes palm/fingers/back of hand Prolia 60 mg/mL syringe 60 mg subcut Q6M fexofenadine 180 mg tablet 180 mg PO HS hydrochlorothiazide 12.5 mg tablet 12.5 mg PO QAM PRN (Reason: Edema) lansoprazole [Prevacid 24Hr] 15 mg capsule,delayed release(DR/EC) 15 mg PO QPM atorvastatin 20 mg tablet 20 mg PO QPM Linzess 290 mcg Capsule 290 mcg PO QAM Ozempic 2 mg/dose (8 mg/3 mL) Pen Injector 2 mg SUBCUT WK Discharge Orders: Discharge Order (Routine); Ordered 10/04/23 Ordered By: Carlitos Luong Admission Data Admit Date/Time: 10/03/23 09:05 Attending Provider: Carlitos Luong Admit Provider: Carlitos Luong Primary Care Provider: Estefany Henson
[2023-10-04] MEDS ORDERED: CHOLECALCIFEROL 5,000 UNITS 125 MCG TAB PO SCH (09:00)
[2023-10-04] MEDS ORDERED: LINACLOTIDE 145 MCG CAPSULE PO SCH (09:00)
[2023-10-04] MEDS ORDERED: dexAMETHasone 6 MG in SYRINGE 0 ML IV SCH (09:00)
== END 2023-10-04 14:16 | disposition home or self-care (01) ==
LOC: ASU 06:13 → 3E 06:13